=== PATIENT | male | born 1960 | race Caucasian/White ===

== ENCOUNTER 2016-06-28 15:59 | Observation (INO) | payer MEDICAID ==
[~2016-06-28] VITALS: Ht 170.2 cm; Wt 53.6 kg
[2016-06-28 16:49] LABS: DAU SCREEN DISCLAIMER
[2016-06-28 17:01] LABS: BLOOD UREA NITROGEN 26 mg/dL (7-18)
[2016-06-28 17:02] LABS: ACETAMINOPHEN < 2 mcg/mL (10-30)
[2016-06-28] MEDS ORDERED: TRAZODONE 50MG TABLET PO PRN (19:00)
[2016-06-28] MEDS ORDERED: ONDANSETRON ODT 4 MG PO PRN (19:00)
[2016-06-28] MEDS ORDERED: ACETAMINOPHEN 325 MG TABLET PO PRN (19:00)
[2016-06-28] MEDS ORDERED: NICOTINE 14MG/24 HR PATCH.TD24 TD SCH (19:00)
[2016-06-28] MEDS ORDERED: POLYETHYLENE GLYCOL 17 GM PACKET PO PRN (19:00)
[2016-06-28] MEDS ORDERED: LORazepam 1MG TABLET PO PRN (19:00)
[2016-06-28] MEDS ORDERED: BISACODYL 10 MG SUPP PR PRN (19:00)
[2016-06-28] MEDS ORDERED: OLANZAPINE 5 MG TABLET PO PRN (19:00)
[2016-06-28 20:26] VITALS: BP 106/63
[2016-06-28] MEDS: GABAPENTIN 100 MG CAPSULE PO SCH (20:52)
[2016-06-28] MEDS ORDERED: QUETIAPINE 25MG TABLET PO SCH (21:00)
[2016-06-29 07:56] VITALS: BP 110/67
[2016-06-29] MEDS: GABAPENTIN 100 MG CAPSULE PO SCH ×2 (08:34→16:04)
[2016-06-29] MEDS ORDERED: SENNA/DOCUSATE TABLET PO SCH (09:00)
[2016-06-29] MEDS ORDERED: NAPROXEN 500 MG TABLET PO SCH (09:00)
== END 2016-06-29 16:42 ==
LOC: ED 16:34 → INTOOBSV 18:42 → EDIP 18:42 → 3E 19:48
PROVIDERS: ADMIT Internal Medicine
DX: R45.851 Suicidal ideations (principal); F31.9 Bipolar disorder, unspecified; M41.9 Scoliosis, unspecified; M19.90 Unspecified osteoarthritis, unspecified site; G62.9 Polyneuropathy, unspecified; F12.90 Cannabis use, unspecified, uncomplicated; F17.200 Nicotine dependence, unspecified, uncomplicated; M54.9 Dorsalgia, unspecified; G89.29 Other chronic pain; Z91.5 Personal history of self-harm; Z80.9 Family history of malignant neoplasm, unspecified
CPT/HCPCS: 36415; 80048; 80307; 80329; 82040; 84439; 84443; 85025; 99285; G0378; G0480

== ENCOUNTER 2017-01-18 11:18 | Emergency (ER) | payer MEDICAID ==
[~2017-01-18] VITALS: Ht 170.2 cm; Wt 58.0 kg
[2017-01-18 11:54] LABS: HEMATOCRIT 49.1 % (39.2-51.8); HEMOGLOBIN 16.7 g/dL (13.7-18.0); WHITE BLOOD COUNT 9.2 x10^3/uL (3.4-10)
[2017-01-18] MEDS ORDERED: ASPIRIN 81 MG TABLET CHEW PO ONE (12:00)
[2017-01-18 12:05] LABS: BLOOD UREA NITROGEN 10 mg/dL (7-18)
[2017-01-18 12:12] LABS: IS PT STATUS REG ER OR PRE ER? YES
[2017-01-18] MEDS ORDERED: ASPIRIN 81 MG TABLET CHEW ONE (13:30)
[2017-01-18] MEDS ORDERED: IBUPROFEN 200 MG TABLET ONE (14:11)
[2017-01-18 14:18] VITALS: BP 122/87
[2017-01-18] MEDS ORDERED: IBUPROFEN 200 MG TABLET PO ONE (14:30)
== END 2017-01-18 14:48 | disposition home or self-care (01) ==
LOC: ED 14:31
DX: R07.89 Other chest pain (principal); F17.200 Nicotine dependence, unspecified, uncomplicated; Z88.0 Allergy status to penicillin
CPT/HCPCS: 36415; 71020; 80048; 82040; 84484; 85025; 93005; 99285

== ENCOUNTER 2018-05-19 21:56 | Emergency (ER) | payer MEDICAID ==
[~2018-05-19] VITALS: Ht 170.2 cm; Wt 57.0 kg
[2018-05-19 22:46] LABS: BASOPHILS # (AUTO) 0.05 x10^3/uL (0-0.1); BASOPHILS % (AUTO) 1 % (0-1); EOSINOPHILS # (AUTO) 0.22 x10^3/uL (0-0.4); EOSINOPHILS % (AUTO) 3 % (1-7); LYMPHOCYTES # (AUTO) 1.68 x10^3/uL (1-3.4); LYMPHOCYTES % (AUTO) 19 % (22-44); MD NO; MEAN CORPUSCULAR HEMOGLOBIN 31.8 pg (27.5-34.5); MEAN CORPUSCULAR HGB CONC 33.5 g/dL (33.2-36.2); MEAN CORPUSCULAR VOLUME 94.9 fL (81-97); MEAN PLATELET VOLUME 8.4 fL (7.4-10.4); MONOCYTES # (AUTO) 0.49 x10^3/uL (0.2-0.8); MONOCYTES % (AUTO) 6 % (2-9); NEUTROPHILS # (AUTO) 6.42 x10^3/uL (1.8-6.8); NEUTROPHILS % (AUTO) 73 % (42-75); PLATELET COUNT 321 x10^3/uL (130-400); RED BLOOD COUNT 4.24 x10^6/uL (4.38-5.82); RED CELL DISTRIBUTION WIDTH 14.4 % (9.4-14.8)
[2018-05-19 22:58] LABS: ALANINE AMINOTRANSFERASE 55 U/L (12-78); ALBUMIN 3.2 g/dL (3.4-5.0); ANION GAP 6 mmol/L (5-15); CALCIUM 8.5 mg/dL (8.5-10.1); CHLORIDE 106 mmol/L (98-107); CREATININE 0.91 mg/dL (0.7-1.3)
--- NOTE | 2018-05-19 23:01 | NUR ---
PT IN US
[2018-05-19 23:02] LABS: ALKALINE PHOSPHATASE 62 U/L (45-117); BILIRUBIN,TOTAL 0.5 mg/dL (0.2-1.0); TOTAL PROTEIN 6.5 g/dL (6.4-8.2)
[2018-05-19 23:04] LABS: TROPONIN I < 0.015 ng/mL (0.000-0.045)
--- NOTE | 2018-05-19 23:40 | NUR ---
PT BACK FROM [place]. OBTAINING URINE SAMPLE AT THIS TIME.
[2018-05-19 23:51] VITALS: BP 128/71
--- NOTE | 2018-05-19 23:51 | NUR ---
URINE SAMPLE PROVIDED, SENT TO LAB
[2018-05-20 00:26] LABS: MICROSCOPIC NOT IND
[2018-05-20 00:28] LABS: CULTURE INDICATED? NO
--- NOTE | 2018-05-20 01:03 | NUR ---
Patient/Caregiver given discharge instructions and they have confirmed that they understand the instructions. Patient ambulatory with steady gait, wheeled to discharge area for ease and comfort.
== END 2018-05-20 01:05 | disposition home or self-care (01) ==
LOC: ED 23:59
DX: I82.411 Acute embolism and thrombosis of right femoral vein (principal); M79.662 Pain in left lower leg
CPT/HCPCS: 36415; 71045; 80053; 81003; 83880; 84484; 85025; 93005; 93970; 99284

== ENCOUNTER 2020-07-29 19:48 | Emergency (ER) | payer SELFPAY ==
[~2020-07-29] VITALS: Ht 165.1 cm; Wt 52.9 kg
[2020-07-29 19:58] VITALS: BP 115/65
--- NOTE | 2020-07-29 20:08 | NUR ---
LONG TERM CARE PHLEBOTOMIST: PER KIMO ALAMO PT. DOES NOT NEED TO BE ON ISOLATION R/T TB SCREEN. NO COUGH HAS BEEN NOTED. PT. IN DIRECT VIEW OF THIS RN UNTIL ROOM BECOMES AVAILABLE.
[2020-07-29 20:29] LABS: BASOPHILS % (AUTO) 1 % (0-1); EOSINOPHILS % (AUTO) 2 % (1-7); LYMPHOCYTES % (AUTO) 19 % (22-44); MEAN CORPUSCULAR HEMOGLOBIN 32.1 pg (27.5-34.5); MEAN CORPUSCULAR HGB CONC 34.4 g/dL (33.2-36.2); MEAN PLATELET VOLUME 8.5 fL (7.4-10.4); MONOCYTES % (AUTO) 6 % (2-9); NEUTROPHILS % (AUTO) 72 % (42-75); PLATELET COUNT 248 x10^3/uL (130-400); RED BLOOD COUNT 4.64 x10^6/uL (4.38-5.82); RED CELL DISTRIBUTION WIDTH 14.3 % (9.4-14.8)
[2020-07-29 20:30] LABS: MD NO
[2020-07-29 20:37] LABS: ALANINE AMINOTRANSFERASE 19 U/L (12-78); ALBUMIN 3.5 g/dL (3.4-5.0); ANION GAP 6 mmol/L (5-15); CALCIUM 8.7 mg/dL (8.5-10.1); CHLORIDE 104 mmol/L (98-107); SALICYLATE LEVEL 2.6 mg/dL (2.8-20.0)
[2020-07-29 20:47] LABS: ALKALINE PHOSPHATASE 72 U/L (45-117); BILIRUBIN,TOTAL 0.4 mg/dL (0.2-1.0); CREATININE 0.91 mg/dL (0.7-1.3); TOTAL PROTEIN 6.7 g/dL (6.4-8.2)
--- NOTE | 2020-07-29 20:47 | NUR ---
DIRECTOR AIRPORT: PT. TO ROOM FROM LOBBY AT THIS TIME.
--- NOTE | 2020-07-29 21:11 | NUR ---
PT CAME IN [place] SI. "I DO NOT WISH TO BE ALIVE ANYMORE. I AM GOING TO SUFFOCATE MYSELF." PT DENIES WANTING TO HURT ANYONE ELSE CURRENTLY. LABS DRAWN. UA SENT. TELEPYSCH IN WITH PT AWAITING ASSESSMENT. PT BELONGINGS HAVE BEEN PLACED IN SECURITY LOCKER. PT IS IS SI SECURED ROOM WITH A PSA OUTSIDE OF ROOM WITH DIRECT LINE TO SIGHT FOR SAFETY
[2020-07-29 21:13] LABS: AMPHETAMINE SCREEN, URINE Negative (Negative); BARBITURATE SCREEN, URINE Negative (Negative); BENZODIAZEPINE SCREEN, URINE Negative (Negative); CANNABINOID SCREEN, URINE Positive (Negative); COCAINE SCREEN, URINE Negative (Negative); METHADONE SCREEN, URINE Negative (Negative); OPIATE SCREEN, URINE Negative (Negative)
--- NOTE | 2020-07-29 21:34 | NUR ---
SPOKE WITH [facility]. UPDATED HIM ON SITUATION.
--- NOTE | 2020-07-29 21:58 | NUR ---
PER TELEPSYCH "I HAVE NO ACUTE SAFETY CONCERNS. I THINK HE IS MALINGERING. AND HE IS OK TO BE DISCHARGED WITH RESOURCES FOR OUTPATIENT CLINIC" NOTIFIED OF DISCUSSION
== END 2020-07-29 22:54 | disposition home or self-care (01) ==
LOC: ED 21:37
DX: R45.851 Suicidal ideations (principal); Z72.9 Problem related to lifestyle, unspecified; Z86.718 Personal history of other venous thrombosis and embolism; Z87.891 Personal history of nicotine dependence
CPT/HCPCS: 36415; 80053; 80299; 80307; 80320; 80329; 84443; 85025; 99285; G0480